=== PATIENT | male | born 1990 | race Caucasian/White ===

== ENCOUNTER 2025-05-31 11:48 | Outpatient (CLI) | payer OTHER ==
--- NOTE | 2025-05-31 12:23 | RADIOLOGY REPORT ---
CLINICAL INDICATION: LEFT ELBOW PAIN POST ORIF AT AGE 14 TECHNIQUE: Left DI ELBOW, COMPLETE (3VW MIN) Comparison: None FINDINGS/IMPRESSION: : There is no evidence of acute fracture or dislocation. Soft tissues are unremarkable. Surgical screw fixation of incompletely healed medial epicondyle fracture. Surgical screw appears fra ctured. Clinical correlation advised. No prior images are available for comparison.
== END 2025-05-31 23:59 | disposition home or self-care (01) ==
LOC: RAD 11:48
PROVIDERS: ATTEND Physician Assistant
DX: M25.521 Pain in right elbow (principal)
CPT/HCPCS: 73080